=== PATIENT | male | born 1960 | race Caucasian/White ===

== ENCOUNTER 2017-05-21 17:49 | Inpatient (IN) | payer MEDICAID ==
[~2017-05-21] VITALS: Ht 172.7 cm; Wt 80.7 kg
[2017-05-21] MEDS ORDERED: ASPI81TA44 PO (18:26)
--- NOTE | 2017-05-21 18:59 | NUR ---
PT IS IN ROOM #2A. DR SUGGS EVALUATED THE PT.
[2017-05-21] MEDS ORDERED: HYDROCODONE/APAP 10-325 MG TABLET PO ONE (19:00)
[2017-05-21] MEDS ORDERED: ONDANSETRON ODT 4 MG TAB.RAPDIS SL ONE (19:00)
[2017-05-21] MEDS ORDERED: HYDROCODONE/APAP 10-325 MG TABLET ONE (19:13)
[2017-05-21] MEDS ORDERED: ONDANSETRON ODT 4 MG TAB.RAPDIS ONE (19:14)
--- NOTE | 2017-05-21 19:18 | NUR ---
REPORT GIVEN TO AIRPLANE ELECTRICAL REPAIRER RN.
--- NOTE | 2017-05-21 19:25 | NUR ---
PT RECEIVED AND REPORT FROM JOSE BRADFORD ; AWAITING CT HEAD SCAN RESULTS ;PT REASSESSED AOX4 RESP EVEN MELGAR CONT TO C/O PLEITEZ
--- NOTE | 2017-05-21 19:50 | NUR ---
DR SUGGS TO TALK TO DR LIPSCOMB FOR ADMIT DX; SBUDURAL HEMATOMA GUANACO TO TELEMETY
[2017-05-21 20:00] VITALS: BP 146/90
[2017-05-21 20:19] LABS: CREATININE 0.9 mg/dL (0.6-1.3); POTASSIUM 4.8 mmol/L (3.5-5.1)
[2017-05-21 20:20] LABS: BASOPHILS # (AUTO) 0.2 K/uL (0.0-8.0); BASOPHILS % (AUTO) 1.1 % (0.0-2.0); EOSINOPHILS # (AUTO) 0.1 K/uL (0.0-0.7); EOSINOPHILS % (AUTO) 0.7 % (0.0-7.0); HEMATOCRIT 48.7 % (40-50); HEMOGLOBIN 16.5 G/DL (14.0-18.0); LYMPHOCYTES # (AUTO) 2.4 K/UL (0.8-4.8); LYMPHOCYTES % (AUTO) 15.4 % (20.5-51.5); MEAN CORPUSCULAR HEMOGLOBIN 28.2 UUG (27.0-31.0); MEAN CORPUSCULAR HGB CONC 34 g/dL (32.0-37.0); MONOCYTES # (AUTO) 0.9 K/UL (0.1-1.30); MONOCYTES % (AUTO) 6.1 % (0.0-11.0); NEUTROPHILS # (AUTO) 11.7 K/UL (1.8-8.9); NEUTROPHILS % (AUTO) 76.7 % (38.5-71.5); PLATELET COUNT (AUTO) 235 K/UL (150-450); RED BLOOD CELL COUNT(AUTO) 5.86 MIL/UL (4.7-6.1); WHITE BLOOD COUNT (AUTO) 15.3 K/UL (4.0-11.2)
[2017-05-21 20:25] LABS: BILIRUBIN,DIRECT 0.2 mg/dL (0.0-0.2); BILIRUBIN,TOTAL 0.8 mg/dL (0.2-1.0)
--- NOTE | 2017-05-21 20:31 | NUR ---
PT REPORT CALLED TO PAN SHAKER KERR TO GO TO RM [id number]
[2017-05-21] MEDS ORDERED: ONDANSETRON 4 MG/2 ML VIAL IV PRN (23:00)
[2017-05-21] MEDS ORDERED: MORPHINE SULFATE 2 MG/1 ML DISP.SYRIN IV PRN (23:00)
[2017-05-21] MEDS ORDERED: HYDROCODONE/APAP 5-325MG TABLET PO PRN (23:00)
[2017-05-21] MEDS ORDERED: ACETAMINOPHEN 325 MG TABLET PO PRN (23:00)
[2017-05-21] MEDS ORDERED: ZOLPIDEM 5 MG TABLET PO PRN (23:00)
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
[2017-05-22 00:37] VITALS: BP 113/72
[2017-05-22 04:00] VITALS: BP 120/68
[2017-05-22] MEDS ORDERED: HYDROCODONE/APAP 5-325MG TABLET ONE (04:57)
[2017-05-22 06:11] LABS: BASOPHILS # (AUTO) 0.1 K/uL (0.0-8.0); BASOPHILS % (AUTO) 0.7 % (0.0-2.0); EOSINOPHILS # (AUTO) 0.3 K/uL (0.0-0.7); EOSINOPHILS % (AUTO) 1.9 % (0.0-7.0); HEMATOCRIT 46.3 % (40-50); HEMOGLOBIN 15.6 G/DL (14.0-18.0); LYMPHOCYTES # (AUTO) 2.7 K/UL (0.8-4.8); LYMPHOCYTES % (AUTO) 20.7 % (20.5-51.5); MEAN CORPUSCULAR HEMOGLOBIN 27.8 UUG (27.0-31.0); MEAN CORPUSCULAR HGB CONC 34 g/dL (32.0-37.0); MEAN CORPUSCULAR VOLUME 82.3 FL (82.0-92.0); MONOCYTES # (AUTO) 0.9 K/UL (0.1-1.30); MONOCYTES % (AUTO) 6.8 % (0.0-11.0); NEUTROPHILS # (AUTO) 9.2 K/UL (1.8-8.9); NEUTROPHILS % (AUTO) 69.9 % (38.5-71.5); PLATELET COUNT (AUTO) 213 K/UL (150-450); RED BLOOD CELL COUNT(AUTO) 5.63 MIL/UL (4.7-6.1); WHITE BLOOD COUNT (AUTO) 13.2 K/UL (4.0-11.2)
[2017-05-22 06:21] LABS: MAGNESIUM 1.9 mg/dL (1.8-2.4); PHOSPHOROUS 4.1 mg/dL (2.5-4.9); POTASSIUM 4.1 mmol/L (3.5-5.1)
[2017-05-22] MEDS ORDERED: PANTOPRAZOLE SODIUM 40 MG TABLET.DR PO SCH (07:00)
[2017-05-22] MEDS ORDERED: MORPHINE SULFATE 4 MG/1 ML DISP.SYRIN IV PRN (07:30)
--- NOTE | 2017-05-22 07:30 | NUR ---
Awake, alert, oriented x 4, pupils equally reactive to light, no facial droop noted, no slurring of speech, able to move all extremities on purpose, bilateral equal care services manager. Complaining of headache, 3/10, much less than earlier, feeling weak. Tele SB 48
--- NOTE | 2017-05-22 10:30 | NUR ---
Dr. Pitts for neuro consult, seen and examine dpatient, discussed plan of care
[2017-05-22] MEDS ORDERED: LEVOFLOXACIN 500 MG/D5W 500 MG in PREMIXED 1 EACH IV SCH (10:45)
[2017-05-22 11:33] LABS: THYROID STIMULATING HORMONE 1.256 mIU/mL (0.358-3.740)
[2017-05-22 11:39] VITALS: BP 126/72
[2017-05-22] MEDS ORDERED: HYDR-3326 PO (13:09)
[2017-05-22] MEDS ORDERED: PANT40TA2 PO (13:09)
[2017-05-22] MEDS ORDERED: LEVO500T2 PO (13:09)
[2017-05-22] MEDS ORDERED: ACET325T53 PO (13:09)
[2017-05-22] MEDS ORDERED: ONDA4VIA30 IV (13:09)
[2017-05-22] MEDS ORDERED: ZOLP5TAB8 PO (13:09)
[2017-05-22] MEDS ORDERED: Morphine Sulfate Inj IV (13:09)
--- NOTE | 2017-05-22 14:00 | NUR ---
PT eval done, ambulated in the hallway, noted dizziness after with stable VS. ST eval done at bedside
[2017-05-22 15:21] VITALS: BP 144/82
--- NOTE | 2017-05-22 15:25 | NUR ---
With okay to transfer to [facility], patient aware. With discharge order. Report given to Dejah.
--- NOTE | 2017-05-22 16:15 | NUR ---
Discharged per [facility] in stable condition, not in distress. afebrile. Saline lock R hand intact.
--- NOTE | 2017-05-22 16:26 | NUR ---
Patient being transferred to [facility] under the care of Dr. Zamudio to room 200A. Patient being picked up by [facility]. Report to be given to Dejah at . FAINA Goss is aware of plan. Estella is agreeable to plan. Patient informed that [facility] will call him when he gets to [place] and help him change his hospital that he is capitated to. Sourav at [facility] set up everything for discharge.
[2017-05-23] MEDS ORDERED: LEVOFLOXACIN 500 MG TABLET PO SCH (13:00)
== END 2017-05-22 16:15 | disposition short-term general hospital (02) | DRG 44 ==
LOC: ER 17:53 → TELE 20:39
PROVIDERS: ADMIT Internal Medicine; ATTEND Internal Medicine
DX: I62.00 Nontraumatic subdural hemorrhage, unspecified (principal); R00.1 Bradycardia, unspecified; D72.829 Elevated white blood cell count, unspecified; K21.9 Gastro-esophageal reflux disease without esophagitis; Z86.73 Personal history of transient ischemic attack (TIA), and cerebral infarction without residual deficits; Z96.642 Presence of left artificial hip joint; R73.9 Hyperglycemia, unspecified; J01.30 Acute sphenoidal sinusitis, unspecified
CPT/HCPCS: 36415; 70450; 71010; 83735; 84100; 84443; 85025; 85651; 85730; 92523; A4663; J1956; J2405; Q0162